=== PATIENT | male | born 1930 | race Caucasian/White ===

== ENCOUNTER 2018-09-03 18:54 | Emergency (ER) | payer MEDICARE ==
[~2018-09-03] VITALS: Ht 188 cm; Wt 74.9 kg
[2018-09-03 20:48] VITALS: BP 169/60
== END 2018-09-03 20:49 | disposition home or self-care (01) ==
LOC: M.ERS 18:54
DX: S81.812A Laceration without foreign body, left lower leg, initial encounter (principal); I10 Essential (primary) hypertension; W26.9XXA Contact with unspecified sharp object(s), initial encounter; Y93.89 Activity, other specified; Y92.89 Other specified places as the place of occurrence of the external cause; Y99.8 Other external cause status